=== PATIENT | female | born 1960 | race Caucasian/White ===

== ENCOUNTER 2023-04-20 16:41 | Emergency (ER) | payer OTHER, MEDICAID ==
[~2023-04-20] VITALS: Ht 152.4 cm; Wt 72.6 kg
[~2023-04-20 16:41] MED LIST: ACET-10509 PO
[2023-04-20 17:29] VITALS: RESP 18
[2023-04-20 18:55] VITALS: BP 123/60; PULSE 67; RESP 18; TEMP 97.8; O2SAT 98
== END 2023-04-20 19:10 | disposition home or self-care (01) ==
LOC: MED 16:41
DX: F41.9 Anxiety disorder, unspecified (principal); Q90.9 Down syndrome, unspecified; Z79.899 Other long term (current) drug therapy; W18.30XA Fall on same level, unspecified, initial encounter; Y93.89 Activity, other specified; Y92.89 Other specified places as the place of occurrence of the external cause; Y99.8 Other external cause status
CPT/HCPCS: 99281